=== PATIENT | female | born 1950 | race Caucasian/White ===

== ENCOUNTER 2017-01-05 12:18 | Emergency (ER) | payer BC ==
[~2017-01-05] VITALS: Ht 149.9 cm; Wt 61.0 kg
[~2017-01-05 12:18] MED LIST: AMOX500T PO; DORZ1SOL2 EACH EYE
[2017-01-05 12:21] VITALS: BP 148/75; PULSE 68; RESP 20; TEMP 98.2; O2SAT 95
--- NOTE | 2017-01-05 12:33 | PD ---
HPI Chief Complaint: Skin Problem Time Seen by Provider: 12:29 Travel History International Travel<30 days: No Contact w/Intl Traveler<30days: No Traveled to known affect area: No History of Present Illness HPI Patient comes in complaining of a red itchy bump medial aspect of her proximal left arm that she first noticed 2 days ago when she was in the shower. Patient states she scratched the bump off however continues to have itching and tenderness around the area. Patient tried using [id number] Neosporin, feels it continues to get larger. Patient states she's been squeezing it but has not been able to get anything out of it. Denies any fevers or radiation of the pain. PFSH Past Medical History Asthma: Yes Glaucoma: Yes Past Surgical History Appendectomy: Yes Cholecystectomy: Yes Hysterectomy: Yes Social History Alcohol Use: Yes (beer, occasionally; 2 beers 03/17/16) Tobacco Use: No (quit 2012) Substance Use: No Allergies-Medications (Allergen,Severity, Reaction): Coded Allergies: No Known Allergies (Unverified , 03/18/16) Reported Meds & Prescriptions Reported Meds & Active Scripts Active Bactrim DS (Sulfamethoxazole-Trimethoprim) 800-160 Mg Tab 1 Tab PO BID Pepcid (Famotidine) 20 Mg Tab 20 Mg PO BID 10 Days Medrol Dosepak (Methylprednisolone) 4 Mg Dspk 4 Mg PO DIRECTED Per Pharmacist direction Reported Cosopt (Dorzolamide/Timolol) 5 Ml Soln 1 Drop EACH EYE BID Amoxil (Amoxicillin) 500 Mg Tab 500 Mg PO BID Review of Systems Except as stated in HPI: all other systems reviewed are Neg Physical Exam Narrative GENERAL: Well-developed, overly nourished, in no acute distress, and non-ill appearing. SKIN: Focused skin assessment warm and dry. Erythematous lesion noted left proximal arm needle aspect the patient reports is tender to palpation. There is no induration, fluctuation, crepitus, or drainage. HEAD: Atraumatic. Normocephalic. EYES: Pupils equal and round. EOMI. No scleral icterus. No injection or drainage. ENT: No nasal bleeding or discharge. Mucous membranes pink and moist. NECK: Trachea midline. Supple. No nuclear rigidity. RESPIRATORY: No accessory muscle use. No respiratory distress. MUSCULOSKELETAL: No obvious deformities. No clubbing. No cyanosis. No edema. Full range of motion. NEUROLOGICAL: Awake and alert. No obvious cranial nerve deficits. Motor grossly within normal limits. Normal speech. PSYCHIATRIC: Appropriate mood and affect; insight and judgment normal. Data Data Last Documented VS Vital Signs Date Time Temp Pulse Resp B/P Pulse Ox O2 Delivery O2 Flow Rate FiO2 01/05/17 12:21 98.2 68 20 148/75 95 MDM Medical Decision Making Medical Screen Exam Complete: Yes Emergency Medical Condition: Yes Differential Diagnosis Abscess, cellulitis, insect bite, other Narrative Course The patient presented with nonspecific rash/dermatitis. There were no blisters or bullae, target lesions, purpura or petechia, nor vesiculobullous or scarlatiniform lesions. The patient looks great and was non-ill appearing. There was no evidence to suggest scabies, cellulitis, folliculitis or abscess, Staph. Scalded Skin Syndrome, Toxic Shock, Toxic Epidermal necrolysis, Kawasaki s, Measles, Rubella, cutaneous T cell lymphoma, Erythema Multiforme (minor or major). Plan of care was discussed with the patient and the patient is to follow up with their physician. The patient agreed with plan. Patient in no obvious distress upon re-evaluation. Patient was asked if they wanted to speak to my attending, which the patient did not wish to do at this time. Any questions/concerns in reference to patient diagnosis/condition discussed and clarified prior to patient's discharge. Reinforced sheer importance of close follow up with patient's primary physician or primary care clinic. Instructed patient to return to ED immediately, if symptoms return/ worsen. Pt showed understanding of above instructions. Further instructions and recommendations were detailed in discharge paperwork. Pt ambulated without difficulty out of ED at discharge. Diagnosis Primary Impression: Rash and nonspecific skin eruption Patient Instructions: Acute Rash (ED), General Instructions Additional Instructions: Follow-up with your primary care physician in 2 days for recheck. Take all medication as prescribed. Use [id number] Benadryl or Claritin or Zyrtec as needed for symptomatic relief. Follow instructions on the packaging. Return to the emergency department if symptoms get worse. Med/Other Pt SpecificInfo: Prescription(s) given Scripts Sulfamethoxazole-Trimethoprim (Bactrim DS)800-160 Mg Tab1 Tab PO BID #14 TAB Ref 0 Prov:Soontharothai,Rewadee MD 01/05/17 Famotidine (Pepcid)20 Mg Tab20 Mg PO BID 10 Days Ref 0 Prov:Norris Cleveland MD 01/05/17 Methylprednisolone Dosepak (Medrol Dosepak)4 Mg Dspk4 Mg PO DIRECTED #1 DSPK Ref 0 Per Pharmacist direction Prov:Norris Cleveland MD 01/05/17 Disposition: 01 DISCHARGE HOME Condition: Stable Carlos Greer Jan 05, 2017 12:33
[2017-01-05] MEDS ORDERED: BACT800T5 PO (12:34)
[2017-01-05] MEDS ORDERED: FAMO1TAB37 PO (12:34)
[2017-01-05] MEDS ORDERED: MEDR4PAK PO (12:34)
== END 2017-01-05 13:14 | disposition home or self-care (01) ==
LOC: PHEFT 12:18
DX: R21 Rash and other nonspecific skin eruption (principal); J45.909 Unspecified asthma, uncomplicated; H40.9 Unspecified glaucoma; Z87.891 Personal history of nicotine dependence
CPT/HCPCS: 99282

== ENCOUNTER 2017-03-26 12:51 | Emergency (ER) | payer BC ==
[~2017-03-26] VITALS: Ht 149.9 cm; Wt 63.7 kg
[~2017-03-26 12:51] MED LIST changes: +BACT800T5 PO; +FAMO1TAB37 PO; +MEDR4PAK PO
[2017-03-26 12:57] VITALS: BP 126/71; PULSE 81; RESP 16; TEMP 97.7; O2SAT 97
--- NOTE | 2017-03-26 13:44 | PD ---
HPI Chief Complaint: Abdominal Pain Time Seen by Provider: 13:40 Travel History International Travel<30 days: No Contact w/Intl Traveler<30days: No Traveled to known affect area: No History of Present Illness HPI C/O N/V/D/ AND CRAMPY ABD PAIN, GENERALIZED, NONRAD, 02/22, DENIES FEVER, ONSET YESTERDAY, NOT IMPROVING. PFSH Past Medical History Hx Anticoagulant Therapy: No Asthma: Yes Diabetes: No Diminished Hearing: No Glaucoma: Yes ?: Not Past Surgical History Appendectomy: Yes Cholecystectomy: Yes Hysterectomy: Yes Social History Alcohol Use: No Tobacco Use: No (quit 2012) Substance Use: No Allergies-Medications (Allergen,Severity, Reaction): Coded Allergies: No Known Allergies (Unverified , 03/26/17) Reported Meds & Prescriptions Reported Meds & Active Scripts Active Reported [Unknown Eye Drop] 1 Drop EACH EYE HS Brimonidine Opth Drops (Brimonidine Tartrate) 0.15% Soln 2 Drop EACH EYE TID Timolol Opth Drops 0.5 % Soln 2 Drop EACH EYE BID Review of Systems Gastrointestinal: Positive: Nausea, Vomiting, Diarrhea, Abdominal Pain Physical Exam Narrative GENERAL: SKIN: Warm and dry. HEAD: Atraumatic. Normocephalic. EYES: Pupils equal and round. No scleral icterus. No injection or drainage. ENT: No nasal bleeding or discharge. Mucous membranes pink and moist. NECK: Trachea midline. No JVD. CARDIOVASCULAR: Regular rate and rhythm. RESPIRATORY: No accessory muscle use. Clear to auscultation. Breath sounds equal bilaterally. GASTROINTESTINAL: Abdomen soft, DIFFUSE MILD TTP TO ABDOMEN, nondistended. MUSCULOSKELETAL: Extremities without clubbing, cyanosis, or edema. No obvious deformities. NEUROLOGICAL: Awake and alert. No obvious cranial nerve deficits. Motor grossly within normal limits. Five out of 5 muscle strength in the arms and legs. Normal speech. PSYCHIATRIC: Appropriate mood and affect; insight and judgment normal. Data Data Last Documented VS Vital Signs Date Time Temp Pulse Resp B/P Pulse Ox O2 Delivery O2 Flow Rate FiO2 03/26/17 15:51 16 03/26/17 15:40 70 113/64 96 Room Air 03/26/17 12:57 97.7 Orders Complete Blood Count With Diff (03/26/17 13:40) Comprehensive Metabolic Panel (03/26/17 13:40) Lipase (03/26/17 13:40) Prothrombin Time / Inr (Pt) (03/26/17 13:40) Act Partial Throm Time (Ptt) (03/26/17 13:40) Urinalysis - C+S If Indicated (03/26/17 13:40) Ct Abd/Pel W/O Iv Contrast (03/26/17 13:40) Iv Access Insert/Monitor (03/26/17 13:40) Ecg Monitoring (03/26/17 13:40) NPO (03/26/17 13:40) Hydromorphone Pf Inj (Dilaudid Pf Inj) (03/26/17 13:45) Ondansetron Inj (Zofran Inj) (03/26/17 13:45) Sodium Chloride 0.9% Flush (Ns Flush) (03/26/17 13:45) Labs Laboratory Tests Test 03/26/17 03/26/17 14:00 14:30 Urine Color YELLOW Urine Turbidity CLEAR Urine pH 5.0 Urine Specific [place] 1.025 Urine Protein NEG mg/dL Urine Glucose (UA) NEG mg/dL Urine Ketones NEG mg/dL Urine Occult Blood MOD Urine Nitrite NEG Urine Bilirubin NEG Urine Leukocyte Esterase SMALL Urine RBC 0-3 /hpf Urine WBC 3-5 /hpf Urine Squamous Epithelial > 8 /hpf Cells Urine Bacteria RARE /hpf Urine Mucus FEW /lpf Microscopic Urinalysis Comment CULT NOT INDICATED White Blood Count 7.9 TH/MM3 Red Blood Count 5.05 MIL/MM3 Hemoglobin 14.9 GM/DL Hematocrit 45.3 % Mean Corpuscular Volume 89.7 FL Mean Corpuscular Hemoglobin 29.4 PG Mean Corpuscular Hemoglobin 32.8 % Concent Red Cell Distribution Width 12.8 % Platelet Count 233 TH/MM3 Mean Platelet Volume 8.4 FL Neutrophils (%) (Auto) 88.0 % Lymphocytes (%) (Auto) 5.2 % Monocytes (%) (Auto) 5.5 % Eosinophils (%) (Auto) 1.0 % Basophils (%) (Auto) 0.3 % Neutrophils # (Auto) 7.0 TH/MM3 Lymphocytes # (Auto) 0.4 TH/MM3 Monocytes # (Auto) 0.4 TH/MM3 Eosinophils # (Auto) 0.1 TH/MM3 Basophils # (Auto) 0.0 TH/MM3 CBC Comment DIFF FINAL Differential Comment Prothrombin Time 10.2 SEC Prothromb Time International 0.9 RATIO Ratio Activated Partial 25.2 SEC Thromboplast Time Sodium Level 141 MEQ/L Potassium Level 3.8 MEQ/L Chloride Level 108 MEQ/L Carbon Dioxide Level 25.5 MEQ/L Anion Gap 8 MEQ/L Blood Urea Nitrogen 18 MG/DL Creatinine 0.70 MG/DL Estimat Glomerular Filtration 84 ML/MIN Rate Random Glucose 87 MG/DL Calcium Level 8.9 MG/DL Total Bilirubin 0.8 MG/DL Aspartate Amino Transf 15 U/L (AST/SGOT) Alanine Aminotransferase 22 U/L (ALT/SGPT) Alkaline Phosphatase 71 U/L Total Protein 6.9 GM/DL Albumin 3.9 GM/DL Lipase 170 U/L [facility] Medical Decision Making Medical Screen Exam Complete: Yes Emergency Medical Condition: Yes Medical Record Reviewed: Yes Differential Diagnosis ENTERITIS VIRAL V BACTERIAL V APPY VS GB DZ V PANCREATITIS Narrative Course PATIENT EVALUATION REVEALED NEUTROPHILIA BUT WIHTOUT LEUKOCYTOSIS, NO E/O PANCREATITIS OR ANY MAJOR INTRAABDOMINAL FINDING EXCEPT DIVERTIC Diagnosis Primary Impression: DIVERTICULITIS Scripts Ondansetron Odt (Zofran Odt)4 Mg Tab4 Mg SL Q6HR PRN (Nausea/Vomiting) #12 TAB Prov:Lucho Leung MD 03/26/17 Tramadol (Ultram)50 Mg Tab50 Mg PO Q4H PRN (PAIN) #28 TAB Prov:Lucho Leung MD 03/26/17 Metronidazole (Flagyl)500 Mg [id number] Mg PO TID #21 TAB Prov:Lucho Leung MD 03/26/17 Ciprofloxacin 500 Mg But588 Mg PO BID #14 TAB Prov:Lucho Leung MD 03/26/17 Disposition: 01 DISCHARGE HOME Lucho Leung MD Mar 26, 2017 13:44
[2017-03-26] MEDS ORDERED: HYDROmorphone HCL PF 2 MG/ML VIAL IVS ONE (13:45)
[2017-03-26] MEDS ORDERED: SODIUM CHLORIDE 0.9% FLUSH 10 ML FLUSH IV FLUSH PRN (13:45)
[2017-03-26] MEDS ORDERED: ONDANSETRON HCL 4 MG/2 ML VIAL IVP ONE (13:45)
[2017-03-26] MEDS ORDERED: TIMO0.5S30 EACH EYE (14:05)
[2017-03-26] MEDS ORDERED: UNKNOWN EYE DROP EACH EYE (14:05)
[2017-03-26] MEDS ORDERED: BRIM0.155 EACH EYE (14:05)
--- NOTE | 2017-03-26 14:34 | RADRPT ---
EXAM DATE/TIME: 03/26/2017 13:54 [facility] COMPARISON: No previous studies available for comparison. INDICATIONS : Mid abdominal pain. ORAL CONTRAST: No oral contrast ingested. RADIATION DOSE: 7.64 CTDIvol (mGy) MEDICAL HISTORY : None SURGICAL HISTORY : Appendectomy. Cholecystectomy. ENCOUNTER: Initial ACUITY: 2 days PAIN SCALE: 5/10 LOCATION: Bilateral Umbilical TECHNIQUE: Volumetric scanning of the abdomen and pelvis was performed. Using automated exposure control and ad justment of the mA and/or kV according to patient size, radiation dose was kept as low as reasonably achievable to obtain optimal diagnostic quality images. DICOM format image data is available electro nically for review and comparison. FINDINGS: CT Abdomen: The liver, spleen, pancreas, kidneys, adrenals are unremarkable. There is no evidence for any appreciable pathological adenopathy, free fluid, or bowel obstruction. There is scarring in righ t middle lobe and lingula. Tiny pericardial effusion is seen. There is evidence for prior cholecystec marcio. Common bile duct measures 8.5 mm. There is no evidence for any stones in the kidneys or the co urse of the ureters on either side. There is no hydronephrosis. CT pelvis: There is no evidence for mass, abscess formation, or any significant adenopathy within the pelvis. There are scattered diverticuli mainly in the sigmoid colon without definite signs of divert iculitis.CONCLUSION: Essentially unremarkable study except for scattered diverticuli. Klaudia Marsh MD on March 26, 2017 at 14:27 Board Certified Radiologist. This report was verified electronically.
[2017-03-26 14:40] VITALS: BP 87/53; PULSE 70; RESP 14; O2SAT 97
[2017-03-26 14:54] LABS: GLUCOSE,URINE NEG (NEG); KETONE, URINE NEG (NEG); NITRITE,URINE NEG (NEG)
[2017-03-26 14:56] LABS: BASOPHIL % 0.3 % (0.0-2.0); EOSINOPHIL # 0.1 TH/MM3 (0-0.4); HEMATOCRIT 45.3 % (35.0-46.0); LYMPH % 5.2 % (9.0-44.0); LYMPHOCYTE # 0.4 TH/MM3 (1.0-4.8); MEAN CELL VOLUME 89.7 FL (80.0-100.0); MEAN CORPUSCULAR HEMOGLOBIN 29.4 PG (27.0-34.0); MEAN CORPUSCULAR HGB CONC 32.8 % (32.0-36.0); MONO % 5.5 % (0.0-8.0); PLATELET COUNT 233 TH/MM3 (150-450); RED BLOOD COUNT 5.05 MIL/MM3 (4.00-5.30); RED CELL DISTRIBUTION WIDTH 12.8 % (11.6-17.2); WHITE BLOOD COUNT 7.9 TH/MM3 (4.0-11.0)
[2017-03-26 15:01] LABS: CHLORIDE 108 MEQ/L (98-107); POTASSIUM 3.8 MEQ/L (3.5-5.1); SODIUM (NA) 141 MEQ/L (136-145)
[2017-03-26 15:04] LABS: HEMO FLAGS DIFF FINAL
[2017-03-26 15:04] LABS: BLOOD, URINE MOD (NEG)
[2017-03-26 15:05] LABS: ANION GAP 8 MEQ/L (5-15); APTT (PATIENT) 25.2 SEC (24.3-30.1); BICARBONATE 25.5 MEQ/L (21.0-32.0); BLOOD UREA NITROGEN 18 MG/DL (7-18); INTERNATIONAL NORMALIZED RATIO 0.9 RATIO; PROTHROMBIN TIME - PATIENT 10.2 SEC (9.8-11.6)
[2017-03-26 15:06] LABS: BACTERIA, URINE RARE /hpf; COMMENT (UR) CULT NOT INDICATED; CULTURE IF INDICATED CULT NOT INDICATED; MUCUS URINE FEW /lpf (OCC); RBC, URINE 0-3 /hpf (0-3); SQUAMOUS EPITHELIAL CELL URINE > 8 /hpf (0-5); URINE COLOR YELLOW (YELLW/STRAW)
[2017-03-26 15:08] LABS: ALT (GPT) 22 U/L (10-53); AST (GOT) 15 U/L (15-37); GLOMERULAR FILTRATION RATE 84 ML/MIN (>89)
[2017-03-26 15:09] LABS: TOTAL BILIRUBIN ADULT 0.8 MG/DL (0.2-1.0)
[2017-03-26 15:11] LABS: ALKALINE PHOSPHATASE 71 U/L (45-117)
[2017-03-26 15:40] VITALS: BP 113/64; PULSE 70; RESP 16; O2SAT 96
[2017-03-26] MEDS ORDERED: ZOFR4TAB3 SL (16:02)
[2017-03-26] MEDS ORDERED: ULTR50TA5 PO (16:02)
[2017-03-26] MEDS ORDERED: CIPR500T2 PO (16:02)
[2017-03-26] MEDS ORDERED: METR-1 PO (16:02)
[2017-03-26] MEDS ORDERED: METOCLOPRAMIDE HCL 10 MG/2 ML VIAL IV PUSH ONE (16:15)
[2017-03-26 16:40] VITALS: BP 108/63; PULSE 62; RESP 16; O2SAT 96
== END 2017-03-26 17:30 | disposition home or self-care (01) ==
LOC: PHED 12:51
DX: K57.32 Diverticulitis of large intestine without perforation or abscess without bleeding (principal)
CPT/HCPCS: 74176; 80053; 81001; 83690; 85025; 85610; 85730; 96374; 96375; 99285; J1170; J2405; J2765

== ENCOUNTER 2017-10-10 18:35 | Emergency (ER) | payer MEDICARE, OTHER ==
[~2017-10-10] VITALS: Ht 149.9 cm; Wt 63.7 kg
[~2017-10-10 18:35] MED LIST changes: -AMOX500T PO; -BACT800T5 PO; +BRIM0.155 EACH EYE; +CIPR500T2 PO; -DORZ1SOL2 EACH EYE; -FAMO1TAB37 PO; -MEDR4PAK PO; +METR-1 PO; +TIMO0.5S30 EACH EYE; +TRAM50 PO; +UNKNOWN EYE DROP EACH EYE; +ZOFR4TAB3 SL
[2017-10-10 18:58] VITALS: BP 142/66; PULSE 73; RESP 16; TEMP 97.5
[2017-10-10] MEDS ORDERED: SODIUM CHLORIDE 0.9% FLUSH 10 ML FLUSH IV FLUSH PRN (19:15)
--- NOTE | 2017-10-10 19:20 | PD ---
HPI Chief Complaint: Abdominal Pain Time Seen by Provider: 19:17 Travel History International Travel<30 days: No Contact w/Intl Traveler<30days: No Traveled to known affect area: No History of Present Illness HPI 67-year-old female patient presents to the ER today, has 2 days history of left lower quadrant abdominal pain with nausea and vomiting. She states that she also feels bloated, thinks it is her diverticulitis which has been dealing with since April. She has started to take a pill that her doctor has given to her but states it has not improved his symptoms quite yet. She states it worsens with movement is currently a 4 out of 10 but can get to a 10 out of 10 when it is really bad. She denies any fevers or any other issues. Modifying Factors: Worse with movements Associated Signs & Symptoms: Nausea, vomiting, left lower quadrant abdominal pain Risk Factors: History of diverticulitis PFSH Past Medical History Hx Anticoagulant Therapy: No Asthma: Yes Diabetes: No Diminished Hearing: No Glaucoma: Yes Immunizations Current: Yes Tetanus Vaccination: > 5 Years Influenza Vaccination: No ?: Not Past Surgical History Abdominal Surgery: Yes (TUMMY TUCK) Appendectomy: Yes Cholecystectomy: Yes Eye Surgery: Yes (LASER SURGERY FOR GLAUCOMA) Hysterectomy: Yes Oral Surgery: Yes (DENTAL SURGERY) Other Surgery: Yes (BREAST AUGMENTATION) Social History Alcohol Use: No Tobacco Use: No (quit 2012) Substance Use: No Allergies-Medications (Allergen,Severity, Reaction): Coded Allergies: meperidine (Verified Allergy, Unknown, 10/10/17) Reported Meds & Prescriptions Reported Meds & Active Scripts Active Zofran Odt (Ondansetron Odt) 4 Mg Tab 4 Mg SL Q6HR PRN Ultram (Tramadol HCl) 50 Mg Tab 50 Mg PO Q4H PRN Flagyl (Metronidazole) 500 Mg Tab 500 Mg PO TID Ciprofloxacin (Ciprofloxacin HCl) 500 Mg Tab 500 Mg PO BID Reported [Unknown Eye Drop] 1 Drop EACH EYE HS Brimonidine Opth Drops (Brimonidine Tartrate) 0.15% Soln 2 Drop EACH EYE TID Timolol Opth Drops 0.5 % Soln 2 Drop EACH EYE BID Review of Systems Except as stated in HPI: all other systems reviewed are Neg Physical Exam Narrative GENERAL: Well-developed elderly white female patient currently in mild distress. Awake and oriented 3. SKIN: Focused skin assessment warm/dry. HEAD: Atraumatic. Normocephalic. EYES: Pupils equal and round. No scleral icterus. No injection or drainage. ENT: No nasal bleeding or discharge. Mucous membranes pink and moist. NECK: Trachea midline. No JVD. Supple. CARDIOVASCULAR: Regular rate and rhythm. No murmur appreciated. RESPIRATORY: No accessory muscle use. Clear to auscultation. Breath sounds equal bilaterally. GASTROINTESTINAL: Abdomen soft, left-sided and left lower quadrant tenderness without guarding or rebound, nondistended. Hepatic and splenic margins not palpable. MUSCULOSKELETAL: No obvious deformities. No clubbing. No cyanosis. No edema. NEUROLOGICAL: Awake and alert. No obvious cranial nerve deficits. Motor grossly within normal limits. Normal speech. PSYCHIATRIC: Appropriate mood and affect; insight and judgment normal. Data Data Last Documented VS Vital Signs Date Time Temp Pulse Resp B/P (MAP) Pulse Ox O2 Delivery O2 Flow Rate FiO2 10/10/17 18:58 97.5 73 16 142/66 (91) Orders Orders Complete Blood Count With Diff (10/10/17 19:13) Comprehensive Metabolic Panel (10/10/17 19:13) Lipase (10/10/17 19:13) Urinalysis - C+S If Indicated (10/10/17 19:13) Iv Access Insert/Monitor (10/10/17 19:13) Ecg Monitoring (10/10/17 19:13) Oximetry (10/10/17 19:13) Sodium Chloride 0.9% Flush (Ns Flush) (10/10/17 19:15) Sodium Chlor 0.9% 1000 Ml Inj (Ns 1000 M (10/10/17 19:30) Ondansetron Inj (Zofran Inj) (10/10/17 19:30) Ketorolac Inj (Toradol Inj) (10/10/17 19:30) Ct Abd/Pel W Iv Contrast(Rout) (10/10/17 19:37) Iohexol 350 Inj (Omnipaque 350 Inj) (10/10/17 20:01) Ed Discharge Order (10/10/17 20:39) Labs Laboratory Tests Test 10/10/17 19:25 White Blood Count 7.5 TH/MM3 Red Blood Count 4.92 MIL/MM3 Hemoglobin 14.6 GM/DL Hematocrit 43.2 % Mean Corpuscular Volume 87.8 FL Mean Corpuscular Hemoglobin 29.6 PG Mean Corpuscular Hemoglobin Concent 33.8 % Red Cell Distribution Width 12.2 % Platelet Count 248 TH/MM3 Mean Platelet Volume 8.6 FL Neutrophils (%) (Auto) 78.0 % Lymphocytes (%) (Auto) 13.3 % Monocytes (%) (Auto) 6.0 % Eosinophils (%) (Auto) 2.4 % Basophils (%) (Auto) 0.3 % Neutrophils # (Auto) 5.8 TH/MM3 Lymphocytes # (Auto) 1.0 TH/MM3 Monocytes # (Auto) 0.5 TH/MM3 Eosinophils # (Auto) 0.2 TH/MM3 Basophils # (Auto) 0.0 TH/MM3 CBC Comment DIFF FINAL Differential Comment Urine Color YELLOW Urine Turbidity HAZY Urine pH 5.0 Urine Specific [place] 1.030 Urine Protein TRACE mg/dL Urine Glucose (UA) NEG mg/dL Urine Ketones 15 mg/dL Urine Occult Blood TRACE Urine Nitrite NEG Urine Bilirubin NEG Urine Leukocyte Esterase TRACE Urine RBC 0-3 /hpf Urine WBC 6-8 /hpf Urine Squamous Epithelial Cells 6-8 /hpf Urine Calcium Oxalate Crystals MANY /hpf Urine Bacteria NONE /hpf Microscopic Urinalysis Comment CULT NOT INDICATED Blood Urea Nitrogen 20 MG/DL Creatinine 0.78 MG/DL Random Glucose 112 MG/DL Total Protein 7.3 GM/DL Albumin 4.2 GM/DL Calcium Level 8.9 MG/DL Alkaline Phosphatase 72 U/L Aspartate Amino Transf (AST/SGOT) 18 U/L Alanine Aminotransferase (ALT/SGPT) 30 U/L Total Bilirubin 0.8 MG/DL Sodium Level 140 MEQ/L Potassium Level 3.7 MEQ/L Chloride Level 108 MEQ/L Carbon Dioxide Level 25.2 MEQ/L Anion Gap 7 MEQ/L Estimat Glomerular Filtration Rate 74 ML/MIN Lipase 152 U/L [facility] Medical Decision Making Medical Screen Exam Complete: Yes Emergency Medical Condition: Yes Medical Record Reviewed: Yes Interpretation(s) Laboratory Tests Test 10/10/17 19:25 Neutrophils (%) (Auto) 78.0 % (16.0-70.0) Urine Turbidity HAZY (CLEAR) Urine Ketones 15 mg/dL (NEG) Urine Leukocyte Esterase TRACE (NEG) Urine WBC 6-8 /hpf (0-5) Urine Squamous Epithelial Cells 6-8 /hpf (0-5) Urine Calcium Oxalate Crystals MANY /hpf (NONE) Blood Urea Nitrogen 20 MG/DL (7-18) Random Glucose 112 MG/DL (74-106) Chloride Level 108 MEQ/L (98-107) Estimat Glomerular Filtration Rate 74 ML/MIN (>89) Last 24 hours Impressions Abdomen/Pelvis CT 10/10/171936 Signed Impressions: Service Date/Time: Tuesday, October 10, 2017 19:58 - CONCLUSION: 1. No acute findings. Small hiatal hernia. Pedro South MD Differential Diagnosis Left lower quadrant abdominal pain, nausea and vomiting: Diverticulitis versus constipation versus renal colic versus gastroenteritis Narrative Course Lab work shows UTI but is otherwise unremarkable for any significant metabolic issues or dehydration. Lipase is unremarkable. CAT scan did not show any signs of acute intra-abdominal processes. Patient was given IV fluids, Toradol , and Zofran in the ER. Her nausea and vomiting apparently has improved. Vital signs are stable. At this point, my plan would be to release her with UTI treatment. There is quite a likelihood also with her history of diverticulitis that she has some beginnings of a mild diverticulitis and my plan would be to treat that as well and have her follow-up with GI. Return for worsening in symptoms as needed. The plan has been discussed with her and she states understanding. Diagnosis Primary Impression: Abdominal pain Med/Other Pt SpecificInfo: Prescription(s) given Scripts Ibuprofen (Ibuprofen) 600 Mg Tab 600 MG PO Q6H Y for Pain/Inflammation, #20 TAB 0 Refills Prov: Norris Cleveland MD 10/10/17 Metronidazole (Flagyl) 500 Mg Tab 500 MG PO TID for Infection, #21 TAB Prov: Norris Cleveland MD 10/10/17 Ciprofloxacin (Ciprofloxacin) 500 Mg Tab 500 MG PO BID for Infection, #14 TAB Prov: Norris Cleveland MD 10/10/17 Disposition: DISCHARGE HOME Condition: Stable Norris Cleveland MD Oct 10, 2017 19:20
[2017-10-10] MEDS ORDERED: ONDANSETRON HCL 4 MG/2 ML VIAL IV PUSH ONE (19:30)
[2017-10-10] MEDS ORDERED: KETOROLAC TROMETHAMINE 30 MG/ML (IVP) VIAL IV PUSH ONE (19:30)
[2017-10-10] MEDS ORDERED: SODIUM CHLOR 0.9% 1000 ML INJ 1,000 ML IV ONE (19:30)
[2017-10-10 19:31] LABS: BLOOD, URINE TRACE (NEG); GLUCOSE,URINE NEG (NEG); KETONE, URINE 15 mg/dL (NEG); NITRITE,URINE NEG (NEG); URINE LEUKOCYTE ESTERASE TRACE (NEG)
[2017-10-10 19:32] LABS: AUTOMATED NEUTROPHIL # 5.8 TH/MM3 (1.8-7.7); BASOPHIL % 0.3 % (0.0-2.0); BILIRUBIN, URINE NEG (NEG); EOSINOPHIL # 0.2 TH/MM3 (0-0.4); EOSINOPHIL % 2.4 % (0.0-4.0); HEMATOCRIT 43.2 % (35.0-46.0); HEMOGLOBIN 14.6 GM/DL (11.6-15.3); LYMPH % 13.3 % (9.0-44.0); MEAN CELL VOLUME 87.8 FL (80.0-100.0); MEAN CORPUSCULAR HEMOGLOBIN 29.6 PG (27.0-34.0); MEAN CORPUSCULAR HGB CONC 33.8 % (32.0-36.0); MEAN PLATELET VOLUME 8.6 FL (7.0-11.0); MONOCYTE # 0.5 TH/MM3 (0-0.9); PLATELET COUNT 248 TH/MM3 (150-450); RED BLOOD COUNT 4.92 MIL/MM3 (4.00-5.30); RED CELL DISTRIBUTION WIDTH 12.2 % (11.6-17.2); WHITE BLOOD COUNT 7.5 TH/MM3 (4.0-11.0)
[2017-10-10 19:33] LABS: URINE COLOR YELLOW (YELLW/STRAW)
[2017-10-10 19:35] LABS: RBC, URINE 0-3 /hpf (0-3)
[2017-10-10 19:36] LABS: CALCIUM OXALATE CRYSTALS,URINE MANY /hpf
[2017-10-10 19:39] LABS: CHLORIDE 108 MEQ/L (98-107); SODIUM (NA) 140 MEQ/L (136-145)
[2017-10-10 19:42] LABS: ALBUMIN 4.2 GM/DL (3.4-5.0); CALCIUM 8.9 MG/DL (8.5-10.1); LIPASE 152 U/L (73-393)
[2017-10-10 19:43] LABS: BICARBONATE 25.2 MEQ/L (21.0-32.0); BLOOD UREA NITROGEN 20 MG/DL (7-18); GLUCOSE,RANDOM 112 MG/DL (74-106)
[2017-10-10 19:45] LABS: ALT (GPT) 30 U/L (10-53); AST (GOT) 18 U/L (15-37)
[2017-10-10 19:46] LABS: CREATININE 0.78 MG/DL (0.50-1.00); GLOMERULAR FILTRATION RATE 74 ML/MIN (>89)
[2017-10-10 19:47] LABS: TOTAL BILIRUBIN ADULT 0.8 MG/DL (0.2-1.0); TOTAL PROTEIN 7.3 GM/DL (6.4-8.2)
[2017-10-10 19:48] LABS: ALKALINE PHOSPHATASE 72 U/L (45-117)
[2017-10-10] MEDS ORDERED: IOHEXOL 350 MG/ML 10 ML VIAL (for RAD DIAG) IVCONTRAST ONE (20:01)
--- NOTE | 2017-10-10 20:24 | RADRPT ---
EXAM DATE/TIME: 10/10/2017 19:58 [facility] COMPARISON: No previous studies available for comparison. INDICATIONS : Abdominal pain left side with nausea. History of diveritic IV CONTRAST: 90 cc Omnipaque 350 (iohexol) IV ORAL CONTRAST: No oral contrast ingested. RADIATION DOSE: 7.00 CTDIvol (mGy) MEDICAL HISTORY : Diverticulitis. SURGICAL HISTORY : Appendectomy. Cholecystectomy.Hysterectomy.Tummy tuck, breast augmentation ENCOUNTER: Initial ACUITY: 3 days PAIN SCALE: 5/10 LOCATION: Left lower quadrant TECHNIQUE: Volumetric scanning of the abdomen and pelvis was performed. Using automated exposure control and ad justment of the mA and/or kV according to patient size, radiation dose was kept as low as reasonably achievable to obtain optimal diagnostic quality images. DICOM format image data is available electro nically for review and comparison. FINDINGS: Lung bases are clear. No significant abnormality in the liver, spleen, adrenals, kidneys or pancreas. Previous cholecystectomy. No bowel obstruction. No free air free fluid. No adenopathy. Small hiatal hernia. No acute bony abnormalities. CONCLUSION: 1. No acute findings. Small hiatal hernia. Pedro South MD on October 10, 2017 at 20:16 Board Certified Radiologist. This report was verified electronically.
[2017-10-10 20:41] VITALS: BP 138/68
[2017-10-10] MEDS ORDERED: CIPR500T2 PO (20:42)
[2017-10-10] MEDS ORDERED: IBUP-232 PO (20:42)
[2017-10-10] MEDS ORDERED: METR-1 PO (20:42)
== END 2017-10-10 20:50 | disposition home or self-care (01) ==
LOC: PHED 18:35
DX: R10.32 Left lower quadrant pain (principal); J45.909 Unspecified asthma, uncomplicated; H40.9 Unspecified glaucoma; Z88.8 Allergy status to other drugs, medicaments and biological substances; Z79.899 Other long term (current) drug therapy
CPT/HCPCS: 74177; 80053; 81001; 83690; 85025; 96374; 96375; 99285; J1885; J2405; J7030; Q9967